=== PATIENT | female | born 1940 | race Caucasian/White ===

== ENCOUNTER 2016-05-17 13:51 | Emergency (ER) | payer MEDICARE, MEDICAID ==
[~2016-05-17] VITALS: Ht 167.6 cm; Wt 117.6 kg
[2016-05-17 13:56] VITALS: Ht 167.6 cm; Wt 117.6 kg
[2016-05-17] MEDS ORDERED: NORMAL SALINE 1,000 ML IV ONE (14:00)
--- NOTE | 2016-05-17 14:07 | ERPDOC ---
Departure Disposition Decision Date: May 17, 2016 Disposition Decision Time: 15:38 (KIRK CHAUDHARY APRN) Disposition: 01 DISCHARGED HOME, SELF-CARE Impression Impression (KIRK CHAUDHARY APRN) Impression: Primary Impression: Head injury Encounter type: initial encounter Qualified Codes: S09.90XA - Unspecified injury of head, initial encounter Additional Impressions: Pneumonia Pneumonia type: due to unspecified organism Laterality: right Lung location : lower lobe of lung Qualified Codes: J18.1 - Lobar pneumonia, unspecified organism Fever Fever type: unspecified Qualified Codes: R50.9 - Fever, unspecified Severity: Moderate (KIRK CHAUDHARY APRN) Condition: Stable Seen By: Mid-level only (KIRK CHAUDHARY APRN) Referrals: OSKAR PULLIAM MD (Family) Patient Instructions: Bacterial Pneumonia (ED), Head Injury (ED) Problems/Meds/Labs Reviewed?: Yes Medications reviewed and manag: Yes (KIRK CHAUDHARY APRN) Additional Instructions: Take the Zithromax as prescribed. We did give a dose here as well as a dose of Rocephin IV. Continue to give Tylenol as needed for fever or pain. CT of head was negative today. Monitor for any vomiting, severe headache, or decreased level of responsiveness. Follow up care ordered?: Yes Mental Status: Alert (KIRK CHAUDHARY APRN) Scripts Azithromycin (Zithromax) 250 Mg Tablet 1 TAB PO DAILY, #4 TAB 0 Refills TAKE TWO ON DAY ONE, THEN ONE TAB DAILY UNTIL ALL TAKEN. Prov: KIRK CHAUDHARY APRN 05/17/16 HPI - Fever General Stated Complaint: FELL Time Seen by Provider: 13:55 Source: patient Exam Limitations: no limitations (KIRK CHAUDHARY APRN) Time Seen by Provider: 13:55 (ABDULLAHI CHAVEZ MD) HPI - Fever Initial Comments She lives at the [facility] here in [facility]. About an hour ago she was walking and her legs gave out due to weakness and she fell. She did hit the back of her head with the fall. She has had a temp today up to 103. Is noted to have dry lips. She does report nausea but no vomiting, some slight diarrhea. Does have a cough when moved from to cart. Appears mildly acutely ill appearing. She does think that her fever started today. Occurred At: home Onset: Rapid Duration: 1 hr Fever Quality: greater than 102 F (103 at home) Associated Symptoms: nausea/vomiting (nausea, no vomiting), trouble walking ( due to weakness), DENIES: abdominal pain, chest pain, confusion, dizziness, headache, lightheadedness, muscle spasms, neck pain, ringing in ears, seizures, shortness of breath, slurred speech, vision changes Hx of Similar Symptoms: No (NOLD,KIRK N APPLIANCE SERVICE TECHNICIAN) Allergies: Coded Allergies: No Known Allergies (Unverified , 05/17/16) Review of Systems Constitutional Constitutional: chills, fatigue, fever, weakness, DENIES: dizziness (NOLD, KIRK N APPLIANCE SERVICE TECHNICIAN) ENMT Ears: DENIES: drainage, pain Sinuses: DENIES: congestion, rhinorrhea Mouth/Throat: DENIES: change in voice, hoarsness, painful swallowing, scratchy throat, sore throat (NOLD,KIRK N APPLIANCE SERVICE TECHNICIAN) Cardiovascular Cardiac: DENIES: chest pain, orthopnea Rhythm/Rate: DENIES: irregular beat, palpitations (NOLD,KIRK N APPLIANCE SERVICE TECHNICIAN) Pulmonary Respiratory: cough, DENIES: dyspnea, sputum, tachypnea (NOLD,KIRK N APPLIANCE SERVICE TECHNICIAN) GI Upper Abdomen: nausea, DENIES: pain, vomiting Lower Abdomen: diarrhea, DENIES: constipation, pain (NOLD,KIRK N APPLIANCE SERVICE TECHNICIAN) Integumentary Skin: DENIES: rash (NOLD,KIRK N APPLIANCE SERVICE TECHNICIAN) Neurological General: weakness, DENIES: headache, numbness, tingling (NOLD,KIRK N APPLIANCE SERVICE TECHNICIAN) Physical Exam General General Nourishment: well nourished, well developed, appears stated age, no acute distress, adult, obese General Body Habitus: well groomed (NOLD,KIRK N APPLIANCE SERVICE TECHNICIAN) Vitals and Pain First Documented Vital Signs Date Time Temp Pulse Resp B/P Pulse Ox O2 Delivery O2 Flow Rate FiO2 05/17/16 13:56 102.0 100 20 133/61 93 Room Air (ABDULLAHI CHAVEZ MD) Vitals and Pain Weight: Kilograms: Height (feet): Height (inches): Triage Pain Scale: (NOMAZIN,KIRK N APPLIANCE SERVICE TECHNICIAN) RN VS reviewed by Provider: Yes (KIRK CHAUDHARY APRN) Normal Exams: ENMT: No facial trauma, nasal exudates, pharyngeal erythema, or exudates are noted Neck: Full range of motion, without adenopathy, JVD, bruits or thyromegaly Chest/Resp: Clear all damian, with good airflow, and symmetry bilaterally CV: Regular rate and rhythm, without murmur or gallop, Pulses 2+ all extremities, capillary refill, <2 seconds all ext., no pedal edema noted Abdomen: Bowel sounds positive, soft, non-tender, non-distended, no hepatosplenomegaly, masses or bruits noted Lymphatic: No lymphadenopathy, or lymphedema noted Integumentary: No rashes, hives, or bruising noted Neurologic: Patient is alert, and oriented Psychiatric: Patient exhibits, appropriate attention, emotion and affect (KIRK CHAUDHARY APRN) ENMT (brief) ENMT Brief: NOT FOUND: mucosa moist (dry mucus membranes) (KIRK CHAUDHARY APRN) Differential Diagnoses Considering: Influenza, Pharyngitis, Pneumonia, Septic Shock, UTI, Viral Syndrome, Other (Sepsis, ICH, concussion) (KIRK CHAUDHARY APRN) Progress Results/Orders Orders Procedure Category Date Status Time Ct Head W/O Contrast CT 05/17/16 Resulted Cbc W/Auto LAB 05/17/16 Complete Diff-Reflex Manual Bmp - Basic Metabolic LAB 05/17/16 Complete Panel Iv Lock (Ed Only) EDM 05/17/16 Transmitted 14:00 Blood Culture TIFFANI 05/17/16 In Process 14:00 Lactate - Lactic Acid LAB 05/17/16 Complete Procalcitonin LAB 05/17/16 Complete 14:00 Ua, Dip Wreflex LAB 05/17/16 Complete Microsc & Guardian Ad Litem 14:00 EKG EKG 05/17/16 Taken Troponin I W LAB 05/17/16 Complete Hemolysis Index Normal Saline (Normal PHA 05/17/16 Complete Saline Iv) 14:00 Influenza A/B Screen LAB 05/17/16 Complete 14:07 Chest 1 View RAD 05/17/16 Resulted Ceftriaxone I.V. (Er PHA 05/17/16 Complete Use Only) (Rocephin 15:45 Azithromycin PHA 05/17/16 Complete (Zithromax 500 Mg) 15:45 Acetaminophen PHA 05/17/16 Complete (Tylenol Extra 15:45 (ABDULLAHI CHAVEZ MD) Lab Results Laboratory Tests Test 05/17/16 14:14 05/17/16 14:23 05/17/16 14:30 White Blood Count 7.9T/MM3 Red Blood Count 3.85M/MM3 Hemoglobin 12.8GM/DL Hematocrit 38.6% Mean Corpuscular Volume 100.3UM3 Mean Corpuscular Hemoglobin 33.2UUG Mean Corpuscular Hemoglobin Concent 33.2GM/DL RDW Standard Deviation 49.0FL Platelet Count 158T/MM3 Mean Platelet Volume 10.2UM3 Immature Granulocyte % (Auto) % Neutrophils (%) (Auto) % Lymphocytes (%) (Auto) % Monocytes (%) (Auto) % Eosinophils (%) (Auto) % Basophils (%) (Auto) % Absolute Immature Granulocyte (auto T/MM3 Absolute Neutrophils (auto) T/MM3 Absolute Lymphocytes (auto) T/MM3 Absolute Monocytes (auto) T/MM3 Absolute Eosinophils (auto) T/MM3 Absolute Basophils (auto) T/MM3 Neutrophils % (Manual) 89.0% Lymphocytes % (Manual) 4.0% Reactive Lymphocytes % 1.0% Monocytes % (Manual) 5.0% Eosinophils % (Manual) 1.0% Absolute Neutrophils (Manual) 7.0T/MM3 Lymphocytes # (Manual) 0.3T/MM3 Reactive Lymphocytes # 0.1T/MM3 Monocytes # (Manual) 0.4T/MM3 Eosinophils # (Manual) 0.1T/MM3 Red Cell Morphology Comment Normal Procalcitonin 0.09NG/ML Turbidity < 20 Sodium Level 137MEQ/L Potassium Level 3.5MEQ/L Chloride Level 97MEQ/L Carbon Dioxide Level 29MEQ/L Anion Gap 11MEQ/L Blood Urea Nitrogen 20.0MG/DL Creatinine 0.8MG/DL Glomerular Filtration Rate Calc 70 BUN/Creatinine Ratio 25RATIO Glucose Level 130MG/DL Calculated Osmolality 269MOSM/KG Calcium Level 8.5MG/DL Icterus Index < 2 Troponin I < 0.012ng/ml Plasma Lactate 1.5MMOL/L Chemistry Specimen Hemolysis < 15 Urine Collection Type Cleancatch-midstream Urine Color Yellow Urine Turbidity Clear Urine pH 5.5 Urine Specific Anthony <=1.005 Urine Protein Negative Urine Glucose (UA) Negative Urine Ketones Negative Urine Blood Negative Urine Nitrite Negative Urine Bilirubin Negative Urine Urobilinogen 0.2EU/DL Urine Leukocyte Esterase Negative Urinalysis Comment Microscopic not ind. Influenza Type A Antigen Negative Influenza Type B Antigen Negative (ABDULLAHI CHAVEZ MD) Medications Current ED Medications Sodium Chloride 1,000 ml @ 500 mls/hr Q2H ONCE IV Last administered on 15:01; Start 05/17/16 at 14:00; Stop 05/17/16 at 15:59; Status DC Ceftriaxone Sodium/Sodium Chloride (Rocephin/NS) 100 ml @ 100 mls/hr O ONCE IV Last administered on 05/17/16 15:52; Start 05/17/16 at 15:45; Stop at 16:44; Status DC Azithromycin (ZITHROMAX 500 mg) 500 mg O ONCE PO Last administered on 15:53; Start 05/17/16 at 15:45; Stop 05/17/16 at 15:46; Status DC Acetaminophen (Tylenol Extra Strength) 1,000 mg O ONCE PO Last administered on 05/17/16 15:52; Start 05/17/16 at 15:45; Stop 05/17/16 at 15:46; Status DC (ABDULLAHI CHAVEZ MD) Progress Progress WBC is 7.9 with 87% neutrphils, 4% bands, BMP is normal as well as troponin, Lactate normal at 1.5 and procalcitonin is normal at 0.09 as well. U/A is clear , influenza swab is negative. Chest xray does indicate possible pneumonia. CT of head was negative for bleed. Will go ahead and give her a dose of Rocephin today as well as Zithromax. Will let her go home with Rx for Zithromax as well. Vitals are stable here in ER. Follow up with primary care provider if not improving. (KIRK CHAUDHARY APRN) KIRK CHAUDHARY APRN May 17, 2016 14:07 ABDULLAHI CHAVEZ MD May 18, 2016 10:25
[2016-05-17] MEDS ORDERED: PHEN200C3 PO (14:21)
[2016-05-17] MEDS ORDERED: GUAI600T PO (14:21)
[2016-05-17] MEDS ORDERED: BUME1TAB17 PO (14:21)
[2016-05-17] MEDS ORDERED: CARB15DR3 BOTH EYES (14:21)
[2016-05-17] MEDS ORDERED: DOCU-175 PO (14:21)
[2016-05-17] MEDS ORDERED: SENN-156 PO (14:25)
[2016-05-17] MEDS ORDERED: POTA-81 PO (14:25)
[2016-05-17] MEDS ORDERED: PHEN100C4 PO ×2 (14:25)
[2016-05-17] MEDS ORDERED: HYDR-4246 PO (14:28)
[2016-05-17] MEDS ORDERED: OMEP20CA10 PO (14:28)
[2016-05-17] MEDS ORDERED: GABA-336 PO (14:28)
[2016-05-17] MEDS ORDERED: LEVO150T11 PO (14:28)
[2016-05-17] MEDS ORDERED: CHOL50006 PO (14:31)
[2016-05-17] MEDS ORDERED: ARIP10TA17 PO (14:31)
[2016-05-17] MEDS ORDERED: CYAN10009 PO (14:31)
[2016-05-17] MEDS ORDERED: METO5TAB7 PO (14:31)
[2016-05-17 14:33] LABS: HCT - HEMATOCRIT 38.6 % (36-46); HGB - HEMOGLOBIN 12.8 GM/DL (12-16); MEAN CORPUSCULAR HGB 33.2 UUG (26-34); MEAN CORPUSCULAR HGB CONC(MCHC 33.2 GM/DL (31-37); MEAN CORPUSCULAR VOLUME 100.3 UM3 (80-100); MEAN PLATELET VOLUME 10.2 UM3 (9.4-12.4); RED BLOOD COUNT 3.85 M/MM3 (4.00-5.20); WBC - WHITE BLOOD COUNT 7.9 T/MM3 (4.5-11.0)
[2016-05-17] MEDS ORDERED: POLY119P3 PO ×2 (14:35→14:42)
[2016-05-17] MEDS ORDERED: NEOM28OI18 TOP (14:35)
[2016-05-17] MEDS ORDERED: SOLI10TA5 PO (14:35)
[2016-05-17] MEDS ORDERED: GUAI-1166 PO (14:39)
[2016-05-17] MEDS ORDERED: MULT-669 PO (14:39)
[2016-05-17] MEDS ORDERED: ACET-62 PO (14:39)
[2016-05-17] MEDS ORDERED: LORA10TA7 PO (14:39)
[2016-05-17] MEDS ORDERED: MAG360OR92 PO (14:39)
[2016-05-17 14:41] LABS: BLOOD, URINE NEGATIVE (NEGATIVE); COLOR,URINE YELLOW (YELLOW); LEUKOCYTE ESTERASE ,URINE NEGATIVE (NEGATIVE); NITRITE,URINE NEGATIVE (NEGATIVE); UROBILINOGEN,URINE 0.2 EU/DL (NORMAL)
[2016-05-17 14:41] LABS: LACTATE - LACTIC ACID 1.5 MMOL/L (0.6-2.2)
[2016-05-17] MEDS ORDERED: NYST15CR TOP (14:42)
[2016-05-17] MEDS ORDERED: MAGN400O4 PO (14:42)
[2016-05-17] MEDS ORDERED: POLY30DR BOTH EYES (14:42)
[2016-05-17 14:46] LABS: ANION GAP 11 MEQ/L (5-15); BUN/CREATININE RATIO 25 RATIO (6-26); CALCIUM 8.5 MG/DL (8.4-10.2); CHLORIDE 97 MEQ/L (98-107); CO2 - CARBON DIOXIDE 29 MEQ/L (22-30); CREATININE 0.8 MG/DL (0.7-1.2); GLOMERULAR FILTRATION RATE 70; GLUCOSE 130 MG/DL (65-110); POTASSIUM 3.5 MEQ/L (3.6-5); SODIUM 137 MEQ/L (134-144)
[2016-05-17 14:54] LABS: EOSINOPHILS # (MANUAL) 0.1 T/MM3 (0-0.5); LYMPHOCYTES # (MANUAL) 0.3 T/MM3 (1-4.8); MONOCYTES # (MANUAL) 0.4 T/MM3 (0-0.8); REACTIVE LYMPHOCYTES # 0.1 T/MM3 (0-0); TOTAL CELLS COUNTED 100 %
[2016-05-17 15:04] LABS: INFLUENZA A AG SCREEN NEGATIVE (NEGATIVE)
[2016-05-17 15:05] LABS: INFLUENZA B AG SCREEN NEGATIVE (NEGATIVE)
[2016-05-17] MEDS ORDERED: AZIT250T PO (15:40)
[2016-05-17] MEDS ORDERED: ACETAMINOPHEN 500 MG TABLET PO ONE (15:45)
[2016-05-17] MEDS ORDERED: AZITHROMYCIN 500 MG TABLET PO ONE (15:45)
[2016-05-17] MEDS ORDERED: CEFTRIAXONE I.V. (ER USE ONLY) 1 G in NORMAL SALINE 100 ML IV ONE (15:45)
--- NOTE | 2016-05-17 16:23 | NUR ---
REPORT GIVEN TO JULIANA CARRILLO WELDA.
--- NOTE | 2016-05-17 16:24 | NUR ---
REPORT [facility] WILL SEND TRANSPORTATION
[2016-05-17 17:45] VITALS: BP 159/77; PULSE 95; RESP 20; TEMP 102; O2SAT 93
--- NOTE | 2016-05-18 08:24 | DI ---
Indication: ITS.REASON: fever PROCEDURE: CHEST 1 VIEW: Encounter: Initial Comparison: None Findings: Lungs are hypoinflated. Streaky opacities in both upper lobes probably due to atelectasis or scarring. No consolidative pneumonia identified. Lung bases are somewhat poorly evaluated due to the portable technique and overlapping soft tissues. No gross pleural effusion or pneumothorax. Heart size is mildly enlarged. Mediastinal contours are grossly normal. Impression: Limited exam with hypoinflation but no focal pneumonia. .
--- NOTE | 2016-05-18 08:27 | DI ---
Indication: ITS.REASON: fall, head injury PROCEDURE: CT HEAD W/O CONTRAST: Encounter: Initial Comparison: None Technique: Axial CT images through the head were performed without contrast. Iterative Reconstruction dose reducing technique was utilized. FINDINGS: Mild atrophy. The ventricles are of normal size, shape, and configuration for the patient's age. There is no evidence of acute intracranial hemorrhage, midline displacement, or mass effect. There are scattered areas of low attenuation in the white matter which most likely represent changes of chronic microvascular ischemia. The CT attenuation of the brain parenchyma is otherwise normal within the cerebellum, brain stem, and cerebral hemispheres. The tympanic cavities and mastoid air cells are free of appreciable disease. There are no definite fractures of the skull base, calvarium, or visualized portion of the midface. Mild sinus disease. IMPRESSION: No CT evidence of acute traumatic intracranial injury. There is a preliminary report by [facility]. .
== END 2016-05-17 17:45 | disposition home or self-care (01) ==
LOC: ED 13:51
DX: J18.1 Lobar pneumonia, unspecified organism (principal); S09.90XA Unspecified injury of head, initial encounter; W18.39XA Other fall on same level, initial encounter; Y93.01 Activity, walking, marching and hiking; Y92.129 Unspecified place in nursing home as the place of occurrence of the external cause; Y99.8 Other external cause status
CPT/HCPCS: 36415; 70450; 71010; 80048; 81003; 83605; 84145; 84484; 85025; 87040; 87400; 93005; 96361; 96374; 99284; A9270; J0696; J7030; J7050

== ENCOUNTER → 2016-06-17 | Outpatient (CLI) | payer MEDICARE, MEDICAID ==
[~2016-06-17] MED LIST: ACET-62 PO; ARIP10TA17 PO; AZIT250T PO; BUME1TAB17 PO; CARB15DR3 BOTH EYES; CHOL50006 PO; CYAN10009 PO; DOCU-175 PO; GABA-336 PO; GUAI-1166 PO; GUAI600T PO; HYDR-4246 PO; LEVO150T11 PO; LORA10TA7 PO; MAG360OR92 PO; MAGN400O4 PO; METO5TAB7 PO; MULT-669 PO; NEOM28OI18 TOP; NYST15CR TOP; OMEP20CA10 PO; PHEN100C4 PO; POLY119P3 PO; POLY30DR BOTH EYES; POTA-81 PO; SENN-156 PO; SOLI10TA5 PO
[2016-06-17 08:02] LABS: ANION GAP 15 MEQ/L (5-15); BUN/CREATININE RATIO 25 RATIO (6-26); CHLORIDE 96 MEQ/L (98-107); CO2 - CARBON DIOXIDE 28 MEQ/L (22-30); CREATININE 0.8 MG/DL (0.7-1.2); GLOMERULAR FILTRATION RATE 70; GLUCOSE 115 MG/DL (65-110); SODIUM 139 MEQ/L (134-144)
[2016-06-17 08:42] LABS: POTASSIUM 2.8 MEQ/L (3.6-5)
== END ==
LOC: LABNH.AP 01:38
PROVIDERS: ATTEND Family Medicine
DX: R60.9 Edema, unspecified (principal)
CPT/HCPCS: 36415; 80048; P9604

== ENCOUNTER → 2016-06-24 | Outpatient (CLI) | payer MEDICARE, MEDICAID ==
[2016-06-24 07:47] LABS: POTASSIUM 3.4 MEQ/L (3.6-5)
== END ==
LOC: LABNH.AP 01:20
PROVIDERS: ATTEND Nurse Practitioner
DX: E87.6 Hypokalemia (principal)
CPT/HCPCS: 36415; 84132; P9604

== ENCOUNTER → 2016-07-08 | Outpatient (CLI) | payer MEDICARE, MEDICAID | LOC: LABNH.AP 01:33 | PROVIDERS: ATTEND Nurse Practitioner | DX: R60.9 Edema, unspecified (principal); Z79.899 Other long term (current) drug therapy | CPT/HCPCS: 36415; 84132; P9604 ==